=== PATIENT | female | born 1995 | race American Indian/Alaskan Native ===

== ENCOUNTER 2017-11-27 23:07 | Emergency (ER) | payer MEDICAID ==
[2017-11-28 00:43] LABS: Alanine Aminotransferase 14 units/L (7-56); Albumin 3.6 g/dL (3.9-5); BUN/Creatinine Ratio 16; Blood Urea Nitrogen 11 mg/dL (7-17); Calcium 8.3 mg/dL (8.4-10.2); Hemolysis Index 22
[2017-11-28 01:00] LABS: Basophils # (Auto) 0.1 K/mm3 (0.0-0.1); Eosinophils # (Auto) 0.3 K/mm3 (0.0-0.4); Hematocrit 39.7 % (30.3-42.9); Hemoglobin 12.4 gm/dl (10.1-14.3); Lymphocytes # (Auto) 3.3 K/mm3 (1.2-5.4); Mean Corpuscular HGB Conc 31 % (30-34); Monocytes # (Auto) 0.9 K/mm3 (0.0-0.8); Monocytes % (Auto) 9.1 % (0.0-7.3); Platelet Count 328 K/mm3 (140-440); Red Blood Count 5.72 M/mm3 (3.65-5.03); Red Cell Distribution Width 16.8 % (13.2-15.2)
[2017-11-28 01:13] LABS: Mean Corpuscular Volume 69 fl (79-97)
[2017-11-28 01:14] LABS: Mean Corpuscular Hemoglobin 22 pg (28-32)
[2017-11-28] MEDS ORDERED: NACL 0.9% 500 ML 500 ML IV ONE (02:05)
[2017-11-28] MEDS ORDERED: TORADOL IV ONE (02:05)
[2017-11-28] MEDS ORDERED: SUBLIMAZE IV ONE (02:05)
--- NOTE | 2017-11-28 02:06 | Emergency Department Report ---
ED Abdominal Pain HPI - General Chief Complaint: Abdominal Pain Stated Complaint: ABD PAIN Time Seen by Provider: 11/28/17 01:59 Source: patient Mode of arrival: Ambulatory Limitations: No Limitations - History of Present Illness Initial Comments: This is a 22-year-old obese female who is previously unknown to this provider. She reports a past medical history of asthma, diabetes, keloids, obesity, obstructive sleep apnea, noncompliant with her CPAP. Denies a history of abdominal surgeries. Presents to the ER with a complaint of bilateral lower quadrant abdominal pain for the past week, worse over the past 3 days, more prominent in the right lower quadrant. The pain is sharp, increases with palpation, decreases with rest. She denies urinary symptoms, endorses a few episodes of nonbloody, nonbilious emesis. To me she denies headache, neck pain , chest pain, shortness of breath, vaginal bleeding, gynecologic symptoms and gynecologic pain. MD Complaint: abdominal pain -: Gradual Location: LLQ, RLQ Quality: cramping, stabbing, aching Consistency: intermittent Improves With: rest Worsens With: movement Associated Symptoms: nausea, vomiting. denies: diarrhea, fever, chills, constipation, dysuria, hematemesis, hematochezia, melena, hematuria, anorexia, syncope - Related Data Previous Rx's Medication Instructions Recorded Last Taken Type Acetaminophen [Tylenol Arthritis] 650 mg PO Q6HR PRN #30 tablet.er 11/28/17 Unknown Rx Ibuprofen [Motrin] 600 mg PO Q8H PRN #30 tablet 11/28/17 Unknown Rx Ondansetron [Zofran Odt] 4 mg PO Q8HR PRN #20 tab.rapdis 11/28/17 Unknown Rx Allergies Allergy/AdvReac Type Severity Reaction Status Date / Time No Known Allergies Allergy Unverified 11/27/17 23:56 ED Review of Systems ROS: Stated complaint: ABD PAIN Other details as noted in HPI Comment: All other systems reviewed and negative ED Past Medical Hx - Past Medical History Previous Medical History?: Yes Hx Diabetes: Yes (Pre) Hx Asthma: Yes Additional medical history: sleep apnea - Surgical History Past Surgical History?: Yes Additional Surgical History: keloid removal on ear X2 and on back - Social History Smoking Status: Never Smoker Substance Use Type: None - Medications Home Medications: Home Medications Medication Instructions Recorded Confirmed Last Taken Type Acetaminophen [Tylenol Arthritis] 650 mg PO Q6HR PRN #30 tablet.er 11/28/17 Unknown Rx Ibuprofen [Motrin] 600 mg PO Q8H PRN #30 tablet 11/28/17 Unknown Rx Ondansetron [Zofran Odt] 4 mg PO Q8HR PRN #20 tab.rapdis 11/28/17 Unknown Rx ED Physical Exam - General Limitations: No Limitations General appearance: alert, in no apparent distress, obese - Head Head exam: Present: atraumatic, normocephalic - Eye Eye exam: Present: normal appearance, EOMI, other (visual acuity intact to finger counting, color perception, reading at a close distance). Absent: nystagmus - ENT ENT exam: Present: normal exam, normal orophraynx, mucous membranes moist - Neck Neck exam: Present: normal inspection, full ROM. Absent: tenderness, meningismus - Respiratory Respiratory exam: Present: normal lung sounds bilaterally. Absent: respiratory distress - Cardiovascular Cardiovascular Exam: Present: regular rate, normal rhythm, normal heart sounds. Absent: systolic murmur, diastolic murmur, rubs, gallop - GI/Abdominal GI/Abdominal exam: Present: soft, tenderness, normal bowel sounds, other (there is suprapubic and right lower quadrant tenderness to deep palpation. There is no rebound, guarding or peritoneal signs. There is no right upper quadrant tenderness). Absent: distended, guarding, rebound, rigid, pulsatile mass - External exam: Present: normal external exam Speculum exam: Present: normal speculum exam. Absent: cervical discharge, vaginal bleeding Bi-manual exam: Present: normal bi-manual exam, other (escorted by nurse Alma Calvo). Absent: cervical motion tendernes, adnexal tenderness, adnexal mass, uterine enlargement, uterine tenderness - Extremities Exam Extremities exam: Present: normal inspection, full ROM, normal capillary refill. Absent: pedal edema, joint swelling, calf tenderness - Back Exam Back exam: Present: normal inspection, full ROM. Absent: tenderness, CVA tenderness (R), paraspinal tenderness, vertebral tenderness - Neurological Exam Neurological exam: Present: alert, oriented X3, CN II-XII intact, normal gait, other (Extraocular movements intact. Tongue midline. No facial droop. Facial sensation intact to light touch in the V1, V2, V3 distribution bilaterally. 5 and 5 strength in 4 extremities.. Sensation is intact to light touch in 4 extremities.). Absent: motor sensory deficit - Psychiatric Psychiatric exam: Present: normal affect, normal mood - Skin Skin exam: Present: warm, dry, intact, normal color. Absent: rash ED Course Vital Signs 11/27/17 11/28/17 23:09 03:06 Temperature 99.0 F Pulse Rate 94 H Respiratory 12 22 Rate Blood Pressure 150/83 O2 Sat by Pulse 99 99 Oximetry - Reevaluation(s) Reevaluation #1: 11/28/17 03:31 Differential diagnosis, including but not limited to: Ovarian cyst, urinary tract infection, endometriosis, pelvic inflammatory disease, appendicitis Assessment and plan: 22-year-old female with right lower quadrant pain for one week. Has a low-grade temperature and is mildly tender. She does not endorse a headache to me, has a normal neurologic examination, with no neck pain or neck stiffness. Pelvic examination is pending, transvaginal ultrasound is pending. The patient' s pain will be treated aggressively. Her urinalysis is not consistent with a urinary tract infection. She is found to be not . Reevaluation #2: 11/28/17 04:23 CAT scan negative for acute pathology. Ultrasound negative for acute pathology or torsion. Ovarian follicles noted. Gynecologic exam is benign. Patient feels improved. Patient will be discharged at this time. ED Medical Decision Making - Lab Data Result diagrams: 11/28/17 00:17 11/28/17 00:17 Vital Signs 11/27/17 11/28/17 23:09 03:06 Temperature 99.0 F Pulse Rate 94 H Respiratory 12 22 Rate Blood Pressure 150/83 O2 Sat by Pulse 99 99 Oximetry Labs 11/28/17 11/28/17 11/28/17 00:03 00:17 00:17 WBC 9.9 RBC 5.72 H Hgb 12.4 Hct 39.7 MCV 69 L MCH 22 L MCHC 31 RDW 16.8 H Plt Count 328 Lymph % (Auto) 33.0 [place] % (Auto) 9.1 H Eos % (Auto) 3.0 Baso % (Auto) 1.0 Lymph # 3.3 [place] # 0.9 H Eos # 0.3 Baso # 0.1 Seg Neutrophils % 53.9 Seg Neutrophils # 5.4 Sodium 139 Potassium 3.9 Chloride 101.4 Carbon Dioxide 25 Anion Gap 17 BUN 11 Creatinine 0.7 Estimated GFR > 60 BUN/Creatinine Ratio 16 Glucose 112 H Calcium 8.3 L Total Bilirubin 0.50 AST 14 ALT 14 Alkaline Phosphatase 84 Total Protein 7.3 Albumin 3.6 L Albumin/Globulin Ratio 1.0 HCG, Qual Negative Urine Color Urine Turbidity Urine pH Ur Specific [place] Urine Protein Urine Glucose (UA) Urine Ketones Urine Blood Urine Nitrite Urine Bilirubin Urine Urobilinogen Ur Leukocyte Esterase Urine WBC (Auto) Urine RBC (Auto) U Epithel Cells (Auto) Urine Mucus 11/28/17 01:19 WBC RBC Hgb Hct MCV MCH MCHC RDW Plt Count Lymph % (Auto) [place] % (Auto) Eos % (Auto) Baso % (Auto) Lymph # [place] # Eos # Baso # Seg Neutrophils % Seg Neutrophils # Sodium Potassium Chloride Carbon Dioxide Anion Gap BUN Creatinine Estimated GFR BUN/Creatinine Ratio Glucose Calcium Total Bilirubin AST ALT Alkaline Phosphatase Total Protein Albumin Albumin/Globulin Ratio HCG, Qual Urine Color Yellow Urine Turbidity Clear Urine pH 6.0 Ur Specific [place] 1.032 H Urine Protein <15 mg/dl Urine Glucose (UA) Neg Urine Ketones Neg Urine Blood Neg Urine Nitrite Neg Urine Bilirubin Neg Urine Urobilinogen 4.0 Ur Leukocyte Esterase Neg Urine WBC (Auto) 1.0 Urine RBC (Auto) 3.0 U Epithel Cells (Auto) 5.0 Urine Mucus 2+ - Radiology Data Radiology results: report reviewed, image reviewed Print Report Referring Physician: JACKI ANTUNEZ Patient Name: JOHN PERAZA Date of : 1995 Sex: Female Report Date: 2017-11-28 Report Status: Finalized Findings [facility] [address] [place] [address] Cat Scan Report Signed Patient: JOHN PERAZA MR#: [id number] : 1995 Acct:[id number] Age/Sex: 22 / F ADM Date: 11/27/17 Loc: ED Attending Dr: Ordering Physician: JACKI ANTUNEZ MD Date of Service: 11/28/17 Procedure(s): CT abdomen pelvis w con Accession Number(s): [id number] cc: JACKI ANTUNEZ MD FINAL REPORT EXAM: CT ABDOMEN PELVIS W CON HISTORY: rlq pain COMPARISON: None available. TECHNIQUE: Contiguous axial images were obtained. Additional sagittal and coronal reformatted images were obtained. Administration of IV contrast given per institution protocol. Images submitted for interpretation. 100 cc Omnipaque 350. FINDINGS: Lung bases are clear. No calcified gallstones or biliary dilatation. Mild diffuse fatty infiltration of the liver. Spleen, pancreas, adrenal glands are unremarkable. No solid renal lesion or hydronephrosis. Aorta and IVC are normal in caliber. Urinary bladder, uterus, ovaries are grossly unremarkable. No free fluid or lymphadenopathy in the pelvic cavity. The appendix is normal in caliber measuring 5 millimeters in diameter. No adjacent fat stranding or fluid. Large and small bowel loops normal in caliber. No inflammatory changes the bowel. Lumbar vertebral body heights preserved. Bony pelvis is grossly intact. IMPRESSION: No acute inflammatory changes of the abdomen and pelvis. Large and small bowel loops normal in caliber. The appendix is normal in caliber. No obstructive uropathy. Transcribed By: LMA Dictated By: SANTHOSH PRAJAPATI MD Electronically Authenticated By: SANTHOSH PRAJAPATI MD Signed Date/Time: 11/28/17315 DD/ 5 Critical care attestation.: If time is entered above; I have spent that time in minutes in the direct care of this critically ill patient, excluding procedure time. ED Disposition Clinical Impression: Lower abdominal pain Disposition: DC-01 TO HOME OR SELFCARE Is pt being admited?: No Does the pt Need Aspirin: No Condition: Stable Instructions: Abdominal Pain (ED) Additional Instructions: Cultures were sent today. Results will be available in the next 3-5 days. Have primary care doctor or hotel custodian contact the medical records department to obtain culture results. Follow-up with primary care doctor or hotel custodian within the next 2 weeks. Blood pressure was elevated. This should be followed up by a primary care doctor as recommended. Long-term complications of hypertension and elevated blood pressure include stroke, heart attack, disability, paralysis, loss of quality of life. Return to the ER right away with new pain, worsened pain, migration of pain, weakness, numbness, unsteady gait, confusion, inability to tolerate liquid feeds. Referrals: [facility] [Provider Group] - 3-5 Days [facility] [Provider Group] - 3-5 Days [facility] [Provider Group] - 3-5 Days
[2017-11-28 02:07] LABS: Bilirubin,Urine NEG (Negative); Blood,Urine NEG (Negative); Color,Urine Yellow (Yellow); Mucus,Urine 2+ /HPF; Protein,Urine <15 mg/dL mg/dL (Negative)
[2017-11-28] MEDS ORDERED: NACL ONE (02:46)
--- NOTE | 2017-11-28 03:21 | Cat Scan Report ---
FINAL REPORT EXAM: CT ABDOMEN PELVIS W CON HISTORY: rlq pain COMPARISON: None available. TECHNIQUE: Contiguous axial images were obtained. Additional sagittal and coronal reformatted images were obtained. Administration of IV contrast given per institution protocol. Images submitted for interpretation. 100 cc Omnipaque 350. FINDINGS: Lung bases are clear. No calcified gallstones or biliary dilatation. Mild diffuse fatty infiltration of the liver. Spleen, pancreas, adrenal glands are unremarkable. No solid renal lesion or hydronephrosis. Aorta and IVC are normal in caliber. Urinary bladder, uterus, ovaries are grossly unremarkable. No free fluid or lymphadenopathy in the pelvic cavity. The appendix is normal in caliber measuring 5 millimeters in diameter. No adjacent fat stranding or fluid. Large and small bowel loops normal in caliber. No inflammatory changes the bowel. Lumbar vertebral body heights preserved. Bony pelvis is grossly intact. IMPRESSION: No acute inflammatory changes of the abdomen and pelvis. Large and small bowel loops normal in caliber. The appendix is normal in caliber. No obstructive uropathy.
--- NOTE | 2017-11-28 05:30 | Ultrasound Report ---
FINAL REPORT EXAM: US TRANSVAGINAL HISTORY: rlq pain TECHNIQUE: Routine transvaginal imaging was obtained of the pelvis with Doppler interrogation of the adnexa. FINDINGS: The uterus is anteverted measuring 7 cm x 3 cm x 4.4 cm. The endometrial thickness is 5.8 mm. There is a small amount of fluid in the endocervical canal. Free fluid is not seen. The right ovary is normal in size contour and blood flow measuring 3.1 cm x 2.1 cm x 2.1 cm. There are benign follicles in right ovary. The left ovary is normal size contour blood flow measuring 3 cm x 2.2 cm x 2.3 cm. There are benign-appearing follicles in left ovary. IMPRESSION: Benign-appearing follicles in both ovaries. No evidence of ovarian torsion or free fluid Small amount of fluid in the endocervical canal which is non specific.
--- NOTE | 2017-11-28 05:32 | Ultrasound Report ---
FINAL REPORT EXAM: US PELVIS DUPLEX DOPPLER COMP HISTORY: rlq pain TECHNIQUE: Transabdominal imaging was obtained the pelvis along with Doppler interrogation of the adnexa. FINDINGS: The uterus is anteverted measuring 7 cm x 3 cm x 4.4 cm. The endometrial thickness is 5.8 mm. The myometrium is homogeneous. There is a small amount of fluid in the endocervical canal. Free fluid is not seen. Both ovaries are normal in size, contour, blood flow and echotexture revealing benign follicles bilaterally. The right ovary measures 3.1 cm x 2.1 cm x 2.1 cm. The left ovary measures 3 cm x 2.2 cm x 2.3 cm. IMPRESSION: Normal-appearing ovaries with benign-appearing follicles. No evidence of torsion. Small amount of fluid in the endocervical canal which is non specific.
[2017-11-28 05:58] VITALS: BP 126/78
== END 2017-11-28 06:06 | disposition home or self-care (01) ==
LOC: ED 23:07
DX: R10.30 Lower abdominal pain, unspecified (principal)
CPT/HCPCS: 36415; 74177; 76830; 80053; 81001; 84703; 85025; 87210; 87591; 93975; 96374; 96375; 99284; J1885; J3010; J7040; Q9967

== ENCOUNTER → 2019-07-28 | Outpatient (CLI) | payer MEDICAID | END | disposition home or self-care (01) | LOC: SLR 11:00 | PROVIDERS: ATTEND Internal Medicine Critical Care Medicine | DX: G47.33 Obstructive sleep apnea (adult) (pediatric) (principal); J45.909 Unspecified asthma, uncomplicated | CPT/HCPCS: 95811 ==